=== PATIENT | male | born 1985 | race Caucasian/White ===

== ENCOUNTER 2021-07-24 18:33 | Emergency (ER) | payer OTHER ==
[~2021-07-24] VITALS: Ht 165.1 cm; Wt 77.1 kg
[2021-07-24] MEDS ORDERED: Norco 5-325 Ta1 EACH PO (21:27)
[2021-07-24] MEDS ORDERED: ONDA4 PO (21:27)
== END 2021-07-24 21:43 | disposition home or self-care (01) ==
LOC: ER 18:33
DX: S43.101A Unspecified dislocation of right acromioclavicular joint, initial encounter (principal); S52.571A Other intraarticular fracture of lower end of right radius, initial encounter for closed fracture; S52.611A Displaced fracture of right ulna styloid process, initial encounter for closed fracture; W10.8XXA Fall (on) (from) other stairs and steps, initial encounter; Y92.009 Unspecified place in unspecified non-institutional (private) residence as the place of occurrence of the external cause; Z88.6 Allergy status to analgesic agent
CPT/HCPCS: 73000; 73110; A9270

== ENCOUNTER 2021-08-03 06:50 | Day surgery (SDC) | payer OTHER ==
[~2021-08-03] VITALS: Ht 170.2 cm; Wt 86.9 kg
[~2021-08-03 06:50] MED LIST: Norco 5-325 Ta1 EACH PO; ONDA4 PO
[2021-08-03] MEDS ORDERED: OXYC5 PO (07:54)
--- NOTE | 2021-08-03 08:24 | NUR ---
PT ADMITTED TO [facility]. AGREES WITH PLANNED SURGERY. LUNG SOUNDS CLEAR.
--- NOTE | 2021-08-03 08:40 | NUR ---
SPLING IN PLACE AND SLING TO RIGHT ARM. ELEVATED ON PILLOWS.
--- NOTE | 2021-08-03 13:43 | NUR ---
Patient up to Ambulate independently. Gait steady. Discharge instructions reviewed with patient. Patient verbalizes understanding. Copy given to patient to take home. Patient States Post-Procedure ride home has been arranged. Discharged via wheelchair to private car for ride home. ALL BELONGINGS RETURNED TO PATIENT.
== END 2021-08-03 23:22 | disposition home or self-care (01) ==
LOC: ORSCMMR 06:50 → ORD 08:15 → ORSCMMR 08:15 → ORD 08:30 → ORSCMMR 23:22
PROVIDERS: Orthopaedic Surgery
PROC: 0PSH04Z Reposition Right Radius with Internal Fixation Device, Open Approach (ICD-10-PCS; principal; 2021-08-03 08:15)
DX: S52.571A Other intraarticular fracture of lower end of right radius, initial encounter for closed fracture (principal); W10.8XXA Fall (on) (from) other stairs and steps, initial encounter; Z87.891 Personal history of nicotine dependence
CPT/HCPCS: 73100; A9270; C1713; J0690; J1100; J1885; J2250; J2405; J2704; J2765; J3010; J7120

== ENCOUNTER 2024-03-21 13:28 | Emergency (ER) | payer OTHER ==
[~2024-03-21] VITALS: Ht 182.9 cm; Wt 81.7 kg
[~2024-03-21 13:28] MED LIST changes: +OXYC5 PO
[2024-03-21] MEDS ORDERED: Acetaminophen 500 MG Tab PO ONE (15:05)
[2024-03-21] MEDS ORDERED: Tetanus,Diphtheria Toxd Ped/Pf 0.5 ML VIAL IM ONE (15:10)
[2024-03-21 15:15] VITALS: BP 123/89
[2024-03-21] MEDS ORDERED: Diphth,Pertuss(Acell),Tet Vac 0.5 ML VIAL IM ONE (15:15)
== END 2024-03-21 15:53 | disposition home or self-care (01) ==
LOC: ER 13:28
DX: S01.01XA Laceration without foreign body of scalp, initial encounter (principal); W20.8XXA Other cause of strike by thrown, projected or falling object, initial encounter; Y99.0 Civilian activity done for income or pay; Z87.891 Personal history of nicotine dependence; Z88.6 Allergy status to analgesic agent
CPT/HCPCS: 12002; 70450; 72125; 82947; 90471; 90702; 90715; 99284-25; A9270

== ENCOUNTER 2024-03-27 07:39 | Emergency (ER) | payer BC, OTHER ==
[~2024-03-27] VITALS: Ht 165.1 cm; Wt 85.7 kg
[2024-03-27 08:11] VITALS: BP 114/85
== END 2024-03-27 08:14 | disposition home or self-care (01) ==
LOC: ER 07:39
DX: Z48.02 Encounter for removal of sutures (principal); Z87.891 Personal history of nicotine dependence; Z88.6 Allergy status to analgesic agent
CPT/HCPCS: 99281